=== PATIENT | male | born 1950 | race African-American/Black ===

== ENCOUNTER 2020-01-12 11:56 | Outpatient (CLI) | payer MEDICARE | END 2020-01-12 11:57 | disposition home or self-care (01) | LOC: DTY/OP 11:56 | PROVIDERS: ATTEND Physician Assistant | DX: N18.3 Chronic kidney disease, stage 3 (moderate) (principal) | CPT/HCPCS: 97802 ==

== ENCOUNTER 2021-12-31 08:59 | Day surgery (SDC) | payer MEDICARE, MEDICAID ==
[2021-12-31] MEDS ORDERED: Acetaminophen 500 MG TAB ONE (09:41)
[2021-12-31] MEDS ORDERED: diphenhydrAMINE 25 MG CAP ONE (09:41)
[2021-12-31 11:00] VITALS: TEMP 97.6
[2021-12-31] MEDS ORDERED: cloNIDine 0.1 MG TAB ONE (12:28)
[2021-12-31] MEDS ORDERED: cloNIDine 0.1 MG TAB PO SCH (12:30)
[2021-12-31 13:55] VITALS: BP 141/72
== END 2021-12-31 15:44 | disposition home or self-care (01) ==
LOC: ONC/OP 08:59
PROVIDERS: ATTEND Internal Medicine Medical Oncology
PROC: 30233N1 Transfusion of Nonautologous Red Blood Cells into Peripheral Vein, Percutaneous Approach (ICD-10-PCS; principal; 2021-12-31)
DX: D64.9 Anemia, unspecified (principal); D69.6 Thrombocytopenia, unspecified
CPT/HCPCS: 36430; 86850; 86900; 86901; P9016

== ENCOUNTER 2022-03-28 17:57 | Inpatient (IN) | payer OTHER, MEDICAID ==
[2022-03-28 18:46] LABS: #Eosinphils 0.2 thou/uL (0.0-0.7); #Lymphocytes 0.8 thou/uL (1.20-3.40); #Monocytes 0.3 thou/uL (0.11-0.59); #Neutrophils 2.9 thou/uL (1.40-6.50); %Basophils 0.7 % (0.0-1.0); %Eosinophils 4.9 % (0.0-10.0); %Lymphocytes 19.5 % (21.0-51.0); Hemoglobin 10.6 g/dL (14.0-18.0); Mean Corpuscular HGB CONC 30.8 g/dL (32.0-36.0); Mean Corpuscular Hemoglobin 28.7 pg (27.0-31.0); Mean Corpuscular Volume 93.5 fL (78.0-98.0); RBC Distribution Width 15.8 % (11.5-14.5); Red Blood Cell (RBC) Count 3.68 mill/uL (4.70-6.10); White Blood Cell (WBC) Count 4.3 thou/uL (4.8-10.8)
[2022-03-28 18:59] LABS: Hypochromia SLIGHT = 6-15 cells (100X) (0-5/hpf); MDiff Complete? YES; Mean Platelet Volume 6.9 fL (7.4-10.4); Ovalocytes SLIGHT = 2-5 cells (100X) (0-1/hpf); Platelet Count 106 thou/uL (130-400); Platelet Morphology Comment Appears Decreased; Polychromasia SLIGHT = 2-3 cells (100X) (0-2/hpf)
[2022-03-28 19:01] LABS: ALT (SGPT) 11 U/L (8-55); AST (SGOT) 14 U/L (5-34); Alkaline Phosphatase 107 U/L (40-110); Anion Gap 15 mmol/L (10-20); BUN (Urea Nitrogen) 82 mg/dL (8.4-25.7); Bilirubin, Total 0.4 mg/dL (0.2-1.2); Calc. Creatinine Clearance 0 mL/min (70-130); Calcium 7.5 mg/dL (7.8-10.44); Carbon Dioxide 23 mmol/L (23-31); Chloride 106 mmol/L (98-107); Estimated GFR 7; Globulin 2.7 g/dL (2.4-3.5); Glucose 98 mg/dL (83-110); Lipase 58 U/L (8-78); Potassium 4.1 mmol/L (3.5-5.1); Protein, Total 6.7 g/dL (5.8-8.1); Sodium 140 mmol/L (136-145)
[2022-03-28 19:22] LABS: CKMB 4.7 ng/mL (0-6.6)
[2022-03-28] MEDS ORDERED: niCARdipine 25 MG/10 ML VIAL ONE (20:40)
[2022-03-28 22:47] LABS: SARS-CoV-2 NAA Rapid Test Not Detected (NotDetected)
[2022-03-29] MEDS ORDERED: Acetaminophen 325 MG TAB PO PRN (01:11)
[2022-03-29] MEDS ORDERED: Ondansetron PF 4 MG/2 ML Vial IVP PRN (01:11)
[2022-03-29 01:50] LABS: Troponin I 0.063 ng/mL (< 0.028)
[2022-03-29] MEDS: niCARdipine 25 MG in Sodium Chloride 0.9% 250 ML 250 ML IVPB SCH ×2 (03:15→09:30)
[2022-03-29 05:09] VITALS: BMI 29.5
[2022-03-29 06:36] LABS: #Eosinphils 0.2 thou/uL (0.0-0.7); #Lymphocytes 1.1 thou/uL (1.20-3.40); #Monocytes 0.4 thou/uL (0.11-0.59); #Neutrophils 3.4 thou/uL (1.40-6.50); %Basophils 0.2 % (0.0-1.0); %Eosinophils 4.2 % (0.0-10.0); %Lymphocytes 21.9 % (21.0-51.0); %Neutrophils 66.6 % (42.0-75.0); Mean Corpuscular HGB CONC 30.4 g/dL (32.0-36.0); Mean Corpuscular Hemoglobin 28.5 pg (27.0-31.0); Mean Corpuscular Volume 93.7 fL (78.0-98.0); Mean Platelet Volume 6.8 fL (7.4-10.4); Platelet Count 107 thou/uL (130-400); Red Blood Cell (RBC) Count 3.85 mill/uL (4.70-6.10)
[2022-03-29 06:57] LABS: Anion Gap 16 mmol/L (10-20); BUN (Urea Nitrogen) 79 mg/dL (8.4-25.7); Calc. Creatinine Clearance 11 mL/min (70-130); Calcium 7.9 mg/dL (7.8-10.44); Carbon Dioxide 22 mmol/L (23-31); Chloride 107 mmol/L (98-107); Estimated GFR 7; Glucose 93 mg/dL (83-110); Potassium 3.5 mmol/L (3.5-5.1); Sodium 141 mmol/L (136-145)
[2022-03-29 07:04] LABS: Troponin I 0.077 ng/mL (< 0.028)
[2022-03-29] MEDS: Famotidine 20 MG TAB PO SCH (08:41)
[2022-03-29] MEDS ORDERED: Sucralfate 1 GM TAB PO PRN (10:19)
[2022-03-29] MEDS ORDERED: Isosorbide Dinitrate 5 MG TAB PO SCH ×2 (10:45→21:00)
[2022-03-29] MEDS ORDERED: hydrALAZINE 25 MG TAB PO SCH (10:45)
[2022-03-29] MEDS ORDERED: Finasteride 5 MG TAB PO SCH (10:45)
[2022-03-29] MEDS ORDERED: Tamsulosin HCl 0.4 MG CAP PO SCH (10:45)
[2022-03-29] MEDS ORDERED: Carvedilol 25 MG TAB PO SCH (10:45)
[2022-03-29] MEDS: hydrALAZINE 25 MG TAB PO SCH ×2 (15:37→21:25)
[2022-03-29] MEDS: Carvedilol 25 MG TAB PO SCH (21:25)
[2022-03-30] MEDS: Senokot 8.6 MG TAB PO PRN ×2 (01:54→20:30)
[2022-03-30] MEDS: Tamsulosin HCl 0.4 MG CAP PO SCH (09:32)
[2022-03-30] MEDS: Carvedilol 25 MG TAB PO SCH ×2 (09:33→20:30)
[2022-03-30] MEDS: hydrALAZINE 25 MG TAB PO SCH ×3 (09:33→20:30)
[2022-03-30] MEDS: Isosorbide Dinitrate 20 MG TAB PO SCH ×2 (09:34→20:30)
[2022-03-30] MEDS: Finasteride 5 MG TAB PO SCH (09:34)
[2022-03-30] MEDS: Famotidine 20 MG TAB PO SCH (09:34)
[2022-03-31] MEDS ORDERED: Labetalol HCl 100 MG/20 ML VIAL SLOW IVP SCH (02:30)
[2022-03-31] MEDS ORDERED: Amlodipine 10 MG TAB PO SCH (08:15)
[2022-03-31] MEDS ORDERED: Labetalol HCl 100 MG/20 ML VIAL SLOW IVP PRN (08:42)
[2022-03-31] MEDS: Famotidine 20 MG TAB PO SCH (08:56)
[2022-03-31] MEDS: Finasteride 5 MG TAB PO SCH (08:57)
[2022-03-31] MEDS: Labetalol HCl 100 MG TAB PO SCH ×3 (08:57→20:37)
[2022-03-31] MEDS: Isosorbide Dinitrate 20 MG TAB PO SCH ×2 (08:57→20:37)
[2022-03-31] MEDS: Tamsulosin HCl 0.4 MG CAP PO SCH (08:57)
[2022-03-31] MEDS: hydrALAZINE 25 MG TAB PO SCH ×3 (08:57→20:37)
[2022-03-31] MEDS ORDERED: Polyethylene Glycol 3350 17 GM Packet PO SCH (12:45)
[2022-03-31] MEDS: Senokot 8.6 MG TAB PO PRN (20:37)
[2022-04-01] MEDS: hydrALAZINE 25 MG TAB PO SCH ×3 (10:12→21:05)
[2022-04-01] MEDS: Finasteride 5 MG TAB PO SCH (10:12)
[2022-04-01] MEDS: Labetalol HCl 100 MG TAB PO SCH ×3 (10:13→21:06)
[2022-04-01] MEDS: Famotidine 20 MG TAB PO SCH (10:14)
[2022-04-01] MEDS: Isosorbide Dinitrate 20 MG TAB PO SCH ×2 (10:14→21:06)
[2022-04-01] MEDS: Tamsulosin HCl 0.4 MG CAP PO SCH (10:14)
[2022-04-01] MEDS ORDERED: Polyethylene Glycol 3350 17 GM Packet PO PRN (13:31)
[2022-04-01] MEDS ORDERED: CEFAZOLIN 2 GM in Sodium Chloride 0.9% 100 ML IVPB SCH (15:15)
[2022-04-01] MEDS ORDERED: Fleet Enema 133 ML BOT FS SCH (20:00)
[2022-04-01] MEDS: Senokot S 8.6-50 MG TAB PO SCH (21:05)
[2022-04-02 05:44] LABS: Anion Gap 15 mmol/L (10-20); BUN (Urea Nitrogen) 81 mg/dL (8.4-25.7); Calc. Creatinine Clearance 11 mL/min (70-130); Calcium 7.9 mg/dL (7.8-10.44); Carbon Dioxide 24 mmol/L (23-31); Chloride 108 mmol/L (98-107); Estimated GFR 7; Glucose 98 mg/dL (83-110); Potassium 3.8 mmol/L (3.5-5.1); Sodium 143 mmol/L (136-145)
[2022-04-02 06:03] LABS: HBSAB Concentration Less than 8.00 mIU/mL; HBSAg Index 0.26 S/CO (0-0.99); Hep B Core Total Ab Non-Reactive (NonReactive); Hep B Core Total Index 0.08 S/CO (0-0.79); Hep B Surf AB Non-Reactive (NonReactive); Hep B Surf Ag Non-Reactive S/CO (NonReactive); Hep C IgG Ab Non-Reactive (NonReactive)
[2022-04-02] MEDS ORDERED: Heparin 10,000 UNITS/ 10 ML VIAL ONE ×3 (08:35→17:23)
[2022-04-02] MEDS: hydrALAZINE 25 MG TAB PO SCH ×3 (08:43→22:39)
[2022-04-02] MEDS: Finasteride 5 MG TAB PO SCH (08:44)
[2022-04-02] MEDS: Senokot S 8.6-50 MG TAB PO SCH ×2 (08:44→22:41)
[2022-04-02] MEDS: Labetalol HCl 100 MG TAB PO SCH ×3 (08:44→22:41)
[2022-04-02] MEDS: Isosorbide Dinitrate 20 MG TAB PO SCH ×2 (08:44→22:41)
[2022-04-02] MEDS: Tamsulosin HCl 0.4 MG CAP PO SCH (08:44)
[2022-04-02] MEDS: Famotidine 20 MG TAB PO SCH (08:44)
[2022-04-02] MEDS ORDERED: Tuberculin PPD 0.1 ML VIAL I-DERMAL SCH (11:00)
[2022-04-02] MEDS ORDERED: Bupivacaine/Epinephrine 0.25% 30 ML VIAL ONE (15:25)
[2022-04-02] MEDS ORDERED: Heparin 5,000 UNITS/ML VIAL ONE (15:25)
[2022-04-02] MEDS ORDERED: Lidocaine 2% PF 5 ML VIAL ONE (15:25)
[2022-04-02] MEDS ORDERED: Propofol 1,000 MG/100 ML VIAL IV ONE (15:29)
[2022-04-02] MEDS ORDERED: fentaNYL Citrate/PF 100 MCG/2 ML SYRINGE ONE (15:29)
[2022-04-02] MEDS ORDERED: Lidocaine 2% 6 ML SYR ONE (15:40)
[2022-04-02] MEDS ORDERED: Midazolam HCl 2 mg/2 ml Vial ONE (15:40)
[2022-04-02] MEDS ORDERED: Sodium Chloride 0.9% 100 ML ONE (15:41)
[2022-04-02] MEDS ORDERED: CEFAZOLIN 2 GM VIAL ONE (15:41)
[2022-04-02] MEDS ORDERED: Ondansetron PF 4 MG/2 ML Vial ONE (15:52)
[2022-04-02] MEDS ORDERED: PROPOFOL 200 MG/20 ML VIAL ONE (15:52)
[2022-04-02] MEDS ORDERED: ePHEDrine 50 MG/ML VIAL ONE (15:52)
[2022-04-02] MEDS ORDERED: Dexamethasone 20 MG/5 ML VIAL ONE (15:52)
[2022-04-02] MEDS ORDERED: Phenylephrine 10 MG/ML VIAL ONE (15:52)
[2022-04-02] MEDS ORDERED: Iopamidol 15 ML ONE (17:15)
[2022-04-02] MEDS ORDERED: Ketamine 50 MG/ML (10ML VIAL) ONE (17:20)
[2022-04-02] MEDS ORDERED: Protamine Sulfate 50 MG/5 ML VIAL ONE (17:23)
[2022-04-02] MEDS ORDERED: Iopamidol 30 ML ONE (17:47)
[2022-04-02] MEDS ORDERED: Promethazine HCl 25 MG/ML VIAL IM PRN (18:10)
[2022-04-02] MEDS ORDERED: Promethazine HCl 25 MG/ML VIAL IVPB PRN (18:10)
[2022-04-02] MEDS ORDERED: Ondansetron HCl/PF 4 MG/2 ML Vial IVP PRN (18:10)
[2022-04-02] MEDS ORDERED: traMADol HCl 50 MG TAB PO PRN (18:44)
[2022-04-03] MEDS ORDERED: Fentanyl 100 MCG/2 ML VIAL SLOW IVP SCH (02:45)
[2022-04-03] MEDS ORDERED: Heparin 10,000 UNITS/ 10 ML VIAL ONE (08:34)
[2022-04-03] MEDS ORDERED: Morphine 2 MG/ML VIAL SLOW IVP PRN (10:52)
[2022-04-03] MEDS: Tamsulosin HCl 0.4 MG CAP PO SCH (12:16)
[2022-04-03] MEDS: Isosorbide Dinitrate 20 MG TAB PO SCH ×2 (12:16→20:47)
[2022-04-03] MEDS: Famotidine 20 MG TAB PO SCH ×2 (12:16→12:26)
[2022-04-03] MEDS: Finasteride 5 MG TAB PO SCH (12:16)
[2022-04-03] MEDS: HYDROcodone/Acetaminophen 5/325 mg Tablet PO PRN ×3 (12:18→20:48)
[2022-04-03] MEDS: Senokot S 8.6-50 MG TAB PO SCH ×2 (12:18→20:48)
[2022-04-03] MEDS: Labetalol HCl 100 MG TAB PO SCH ×3 (12:19→20:47)
[2022-04-03] MEDS: hydrALAZINE 25 MG TAB PO SCH ×3 (12:19→20:46)
[2022-04-03] MEDS ORDERED: Iopamidol 370 76% 100 ML VIAL ONE (12:51)
[2022-04-03] MEDS ORDERED: Bupivacaine/Epinephrine 0.25% 30 ML VIAL ONE (14:04)
[2022-04-03] MEDS ORDERED: Lidocaine 1% (PF) 30 ML VIAL ONE (14:04)
[2022-04-03] MEDS ORDERED: Ketorolac Tromethamine 30 MG/ML VIAL IVP SCH (14:45)
[2022-04-03] MEDS ORDERED: Ketorolac Tromethamine 30 MG/ML VIAL IVP PRN (14:52)
[2022-04-04] MEDS: HYDROcodone/Acetaminophen 5/325 mg Tablet PO PRN ×2 (04:11→10:04)
[2022-04-04 05:26] LABS: Anion Gap 15 mmol/L (10-20); BUN (Urea Nitrogen) 50 mg/dL (8.4-25.7); Calc. Creatinine Clearance 12 mL/min (70-130); Calcium 7.9 mg/dL (7.8-10.44); Carbon Dioxide 27 mmol/L (23-31); Chloride 99 mmol/L (98-107); Estimated GFR 9; Glucose 97 mg/dL (83-110); Potassium 4.6 mmol/L (3.5-5.1); Sodium 136 mmol/L (136-145)
[2022-04-04 07:49] LABS: #Eosinphils 0.1 thou/uL (0.0-0.7); #Lymphocytes 0.8 thou/uL (1.20-3.40); #Monocytes 0.8 thou/uL (0.11-0.59); #Neutrophils 7.4 thou/uL (1.40-6.50); %Basophils 0.1 % (0.0-1.0); %Eosinophils 0.6 % (0.0-10.0); %Lymphocytes 8.8 % (21.0-51.0); %Monocytes 9.1 % (0.0-10.0); %Neutrophils 81.4 % (42.0-75.0); Hemoglobin 7.2 g/dL (14.0-18.0); Mean Corpuscular HGB CONC 30.3 g/dL (32.0-36.0); Mean Corpuscular Hemoglobin 28.8 pg (27.0-31.0); Mean Corpuscular Volume 95.2 fL (78.0-98.0); Mean Platelet Volume 8.5 fL (7.4-10.4); Platelet Count 100 thou/uL (130-400); RBC Distribution Width 15.7 % (11.5-14.5); Red Blood Cell (RBC) Count 2.49 mill/uL (4.70-6.10); White Blood Cell (WBC) Count 9.2 thou/uL (4.8-10.8)
[2022-04-04] MEDS: Finasteride 5 MG TAB PO SCH (10:00)
[2022-04-04] MEDS: hydrALAZINE 25 MG TAB PO SCH ×3 (10:01→20:35)
[2022-04-04] MEDS: Isosorbide Dinitrate 20 MG TAB PO SCH ×2 (10:03→20:35)
[2022-04-04] MEDS: Labetalol HCl 100 MG TAB PO SCH ×3 (10:03→20:35)
[2022-04-04] MEDS: Tamsulosin HCl 0.4 MG CAP PO SCH (10:03)
[2022-04-04] MEDS: Senokot S 8.6-50 MG TAB PO SCH ×2 (10:04→20:35)
[2022-04-04 16:15] LABS: #Eosinphils 0.1 thou/uL (0.0-0.7); #Lymphocytes 0.6 thou/uL (1.20-3.40); #Monocytes 0.6 thou/uL (0.11-0.59); #Neutrophils 5.8 thou/uL (1.40-6.50); %Basophils 0.3 % (0.0-1.0); %Eosinophils 1.2 % (0.0-10.0); %Lymphocytes 8.8 % (21.0-51.0); %Monocytes 7.9 % (0.0-10.0); %Neutrophils 81.8 % (42.0-75.0); Hemoglobin 7.1 g/dL (14.0-18.0); Mean Corpuscular HGB CONC 30.6 g/dL (32.0-36.0); Mean Corpuscular Volume 94.6 fL (78.0-98.0); Platelet Count 94 thou/uL (130-400); RBC Distribution Width 15.5 % (11.5-14.5); Red Blood Cell (RBC) Count 2.46 mill/uL (4.70-6.10)
[2022-04-05 05:00] LABS: #Eosinphils 0.2 thou/uL (0.0-0.7); #Monocytes 0.5 thou/uL (0.11-0.59); #Neutrophils 4.5 thou/uL (1.40-6.50); %Basophils 0.1 % (0.0-1.0); %Neutrophils 72.9 % (42.0-75.0); Hemoglobin 6.5 g/dL (14.0-18.0); Mean Corpuscular HGB CONC 30.1 g/dL (32.0-36.0); Mean Corpuscular Hemoglobin 28.6 pg (27.0-31.0); Mean Corpuscular Volume 94.9 fL (78.0-98.0); Mean Platelet Volume 11.4 fL (7.4-10.4); Platelet Count 93 thou/uL (130-400); RBC Distribution Width 15.6 % (11.5-14.5); Red Blood Cell (RBC) Count 2.26 mill/uL (4.70-6.10); White Blood Cell (WBC) Count 6.2 thou/uL (4.8-10.8)
[2022-04-05 05:17] LABS: Anion Gap 17 mmol/L (10-20); BUN (Urea Nitrogen) 71 mg/dL (8.4-25.7); Calc. Creatinine Clearance 10 mL/min (70-130); Calcium 7.4 mg/dL (7.8-10.44); Carbon Dioxide 25 mmol/L (23-31); Chloride 100 mmol/L (98-107); Estimated GFR 7; Glucose 100 mg/dL (83-110); Potassium 4.7 mmol/L (3.5-5.1); Sodium 137 mmol/L (136-145)
[2022-04-05] MEDS: Finasteride 5 MG TAB PO SCH (08:37)
[2022-04-05] MEDS: Tamsulosin HCl 0.4 MG CAP PO SCH (08:37)
[2022-04-05] MEDS: Senokot S 8.6-50 MG TAB PO SCH ×2 (08:37→20:19)
[2022-04-05] MEDS: Isosorbide Dinitrate 20 MG TAB PO SCH ×2 (09:00→20:18)
[2022-04-05] MEDS: Labetalol HCl 100 MG TAB PO SCH ×3 (09:00→20:19)
[2022-04-05] MEDS: hydrALAZINE 25 MG TAB PO SCH ×3 (13:49→20:19)
[2022-04-06 05:12] LABS: Hemoglobin 9.2 g/dL (14.0-18.0)
[2022-04-06] MEDS: Isosorbide Dinitrate 20 MG TAB PO SCH ×2 (08:23→20:17)
[2022-04-06] MEDS: Labetalol HCl 100 MG TAB PO SCH ×3 (08:23→20:17)
[2022-04-06] MEDS: hydrALAZINE 25 MG TAB PO SCH ×3 (08:23→20:16)
[2022-04-06] MEDS: Tamsulosin HCl 0.4 MG CAP PO SCH (08:24)
[2022-04-06] MEDS: Finasteride 5 MG TAB PO SCH (08:24)
[2022-04-06] MEDS: Senokot S 8.6-50 MG TAB PO SCH ×2 (08:24→20:17)
[2022-04-07 05:35] LABS: Anion Gap 14 mmol/L (10-20); BUN (Urea Nitrogen) 60 mg/dL (8.4-25.7); Calc. Creatinine Clearance 11 mL/min (70-130); Calcium 7.7 mg/dL (7.8-10.44); Carbon Dioxide 27 mmol/L (23-31); Chloride 101 mmol/L (98-107); Estimated GFR 8; Glucose 93 mg/dL (83-110); Sodium 138 mmol/L (136-145)
[2022-04-07] MEDS ORDERED: Heparin 10,000 UNITS/ 10 ML VIAL ONE (08:26)
[2022-04-07] MEDS ORDERED: Iopamidol-370 76% 500 ML 1 ML ONE (08:50)
[2022-04-07] MEDS: Isosorbide Dinitrate 20 MG TAB PO SCH ×2 (09:44→20:45)
[2022-04-07] MEDS: Finasteride 5 MG TAB PO SCH (09:44)
[2022-04-07] MEDS: Tamsulosin HCl 0.4 MG CAP PO SCH (09:45)
[2022-04-07] MEDS: hydrALAZINE 25 MG TAB PO SCH ×3 (09:45→20:45)
[2022-04-07] MEDS: Labetalol HCl 100 MG TAB PO SCH ×3 (09:46→20:45)
[2022-04-07] MEDS: Senokot S 8.6-50 MG TAB PO SCH ×2 (09:47→20:45)
[2022-04-07] MEDS: HYDROcodone/Acetaminophen 5/325 mg Tablet PO PRN (20:49)
[2022-04-08] MEDS: HYDROcodone/Acetaminophen 5/325 mg Tablet PO PRN ×3 (03:28→12:44)
[2022-04-08] MEDS: Isosorbide Dinitrate 20 MG TAB PO SCH (08:35)
[2022-04-08] MEDS: hydrALAZINE 25 MG TAB PO SCH (08:35)
[2022-04-08] MEDS: Tamsulosin HCl 0.4 MG CAP PO SCH (08:36)
[2022-04-08] MEDS: Senokot S 8.6-50 MG TAB PO SCH (08:36)
[2022-04-08] MEDS: Labetalol HCl 100 MG TAB PO SCH (08:37)
[2022-04-08] MEDS: Finasteride 5 MG TAB PO SCH (08:37)
[2022-04-08 12:42] VITALS: BP 135/75; TEMP 98
== END 2022-04-08 13:20 | disposition home or self-care (01) | DRG 673 ==
LOC: ERS 17:57 → CCU 20:33 → 2SW 03-29 18:26
PROVIDERS: ADMIT Internal Medicine; ATTEND Internal Medicine
PROC: 031C0ZF Bypass Left Radial Artery to Lower Arm Vein, Open Approach (ICD-10-PCS; principal; 2022-04-02)
PROC: 0JH63XZ Insertion of Tunneled Vascular Access Device into Chest Subcutaneous Tissue and Fascia, Percutaneous Approach (ICD-10-PCS; 2022-04-02)
PROC: 02HV33Z Insertion of Infusion Device into Superior Vena Cava, Percutaneous Approach (ICD-10-PCS; 2022-04-02)
PROC: B5181ZA Fluoroscopy of Superior Vena Cava using Low Osmolar Contrast, Guidance (ICD-10-PCS; 2022-04-02)
PROC: B548ZZA Ultrasonography of Superior Vena Cava, Guidance (ICD-10-PCS; 2022-04-02)
PROC: 5A1D70Z Performance of Urinary Filtration, Intermittent, Less than 6 Hours Per Day (ICD-10-PCS; 2022-04-02)
PROC: 3E033XZ Introduction of Vasopressor into Peripheral Vein, Percutaneous Approach (ICD-10-PCS; 2022-04-02)
PROC: 0W9930Z Drainage of Right Pleural Cavity with Drainage Device, Percutaneous Approach (ICD-10-PCS; 2022-04-03)
PROC: 5A1D70Z Performance of Urinary Filtration, Intermittent, Less than 6 Hours Per Day (ICD-10-PCS; 2022-04-03)
PROC: 30233N1 Transfusion of Nonautologous Red Blood Cells into Peripheral Vein, Percutaneous Approach (ICD-10-PCS; 2022-04-05)
PROC: 5A1D70Z Performance of Urinary Filtration, Intermittent, Less than 6 Hours Per Day (ICD-10-PCS; 2022-04-05)
PROC: 5A1D70Z Performance of Urinary Filtration, Intermittent, Less than 6 Hours Per Day (ICD-10-PCS; 2022-04-07)
DX: I12.0 Hypertensive chronic kidney disease with stage 5 chronic kidney disease or end stage renal disease (principal); I21.A1 Myocardial infarction type 2; J95.811 Postprocedural pneumothorax; N18.6 End stage renal disease; N17.9 Acute kidney failure, unspecified; I16.1 Hypertensive emergency; J90 Pleural effusion, not elsewhere classified; J94.2 Hemothorax; D63.1 Anemia in chronic kidney disease; I16.0 Hypertensive urgency; D69.6 Thrombocytopenia, unspecified; N40.0 Benign prostatic hyperplasia without lower urinary tract symptoms; Z20.822 Contact with and (suspected) exposure to COVID-19; I27.21 Secondary pulmonary arterial hypertension
CPT/HCPCS: 36415; 36430; 71045; 71046; 71260; 71275; 80048; 80053; 82553; 83690; 84484; 85014; 85018; 85025; 86580; 86704; 86850; 86900; 86901; 87340; 87811; 90935; 93005; 93970; 96374; C1713; C1751; C1752; C1776; G0257; J0690; J1100; J1644; J1885; J2001; J2250; J2270; J2370; J2405; J2704; J2720; J3010; J3490; J7050; P9016; Q9967; U0002

== ENCOUNTER 2023-08-28 16:20 | Emergency (ER) | payer OTHER ==
[2023-08-28 18:01] LABS: #Eosinphils 0.2 thou/uL (0.0-0.7); #Monocytes 0.6 thou/uL (0.11-0.59); #Neutrophils 2.3 thou/uL (1.40-6.50); %Basophils 0.8 % (0.0-1.0); %Eosinophils 5.2 % (0.0-10.0); %Lymphocytes 17.4 % (21.0-51.0); %Monocytes 16.1 % (0.0-10.0); %Neutrophils 60.2 % (42.0-75.0); Hematocrit 27.9 % (42.0-52.0); Hemoglobin 8.7 g/dL (14.0-18.0); Mean Corpuscular HGB CONC 31.2 g/dL (32.0-36.0); Mean Corpuscular Hemoglobin 31.6 pg (27.0-31.0); Mean Corpuscular Volume 101.5 fl (78.0-98.0); Mean Platelet Volume 10.1 fL (7.4-10.4); Platelet Count 173 10x3/uL (130-400); RBC Distribution Width 14.3 % (11.5-14.5); Red Blood Cell (RBC) Count 2.75 mill/uL (4.70-6.10); White Blood Cell (WBC) Count 3.8 10x3/uL (4.8-10.8)
[2023-08-28 18:25] LABS: ALT (SGPT) 19 U/L (8-55); AST (SGOT) 20 U/L (5-34); Alkaline Phosphatase 62 U/L (40-110); Anion Gap 10 mmol/L (10-20); BUN (Urea Nitrogen) 25 mg/dL (8.4-25.7); Bilirubin, Total 0.3 mg/dL (0.2-1.2); Calc. Creatinine Clearance 0 mL/min (70-130); Calcium 9.2 mg/dL (7.8-10.44); Carbon Dioxide 37 mmol/L (23-31); Chloride 97 mmol/L (98-107); Estimated GFR 8; Globulin 2.7 g/dL (2.4-3.5); Glucose 101 mg/dL (83-110); Potassium 4.3 mmol/L (3.5-5.1); Protein, Total 6.7 g/dL (5.8-8.1); Sodium 140 mmol/L (136-145)
== END 2023-08-28 19:06 | disposition home or self-care (01) ==
LOC: ERS 16:20
DX: I10 Essential (primary) hypertension (principal); Z79.899 Other long term (current) drug therapy
CPT/HCPCS: 36415; 70450; 80053; 85025; 93005

== ENCOUNTER 2024-03-24 12:06 | Outpatient (CLI) | payer OTHER | END 2024-03-24 12:07 | disposition home or self-care (01) | LOC: SCSRAD 12:06 | PROVIDERS: ATTEND Physician Assistant | DX: M25.561 Pain in right knee (principal); M17.11 Unilateral primary osteoarthritis, right knee; M25.461 Effusion, right knee ==